=== PATIENT | male | born 1985 ===

== ENCOUNTER 2024-09-08 07:15 | Observation (INO) ==
[2024-09-08] MEDS ORDERED: ceFAZolin 2 GM PREMIX 2 GM/50 ML BAG ONE (07:58)
[2024-09-08] MEDS ORDERED: Dexamethasone IV 4 MG/ML VIAL 1 ml VIAL ONE (07:58)
[2024-09-08] MEDS ORDERED: Tranexamic Acid 1 GM/100ML BAG 2,000 MG/200 ML BAG IV ONE (07:58)
[2024-09-08] MEDS ORDERED: Famotidine IV 10 MG/ML 2 ml VIAL (20 mg) ONE (07:59)
[2024-09-08] MEDS: Famotidine IV 10 MG/ML 2 ml VIAL (20 mg) IV ONE (08:25)
[2024-09-08] MEDS: Dexamethasone IV 4 MG/ML VIAL 1 ml VIAL IV SLOW PU ONE (08:27)
[2024-09-08 08:28] LABS: Rapid COVID-19 Molecular Undetected (Undetected)
[2024-09-08 09:28] LABS: Albumin 4.4 g/dL (3.2-5.2); Albumin/Globulin Ratio 1.8 (1-3); Calcium 9.5 mg/dL (8.6-10.3); Creatinine, Serum 0.69 mg/dL (0.67-1.17); Globulin 2.4 g/dL (2-4); Potassium 3.8 mmol/L (3.5-5.0); Total Bilirubin 0.5 mg/dL (0.2-1.0); Total Protein 6.8 g/dL (6.4-8.9); eGFR CKD-EPI 121.5 (>60)
[2024-09-08] MEDS ORDERED: Midazolam 5 mg/5 ml VIAL 1 mg/ml 5 ml VIAL (5 mg) ONE (09:53)
[2024-09-08] MEDS ORDERED: fentaNYL 250 mcg/5 ml 50 MCG/ML 5 ml VIAL (250 MCG) ONE (09:53)
[2024-09-08] MEDS ORDERED: Propofol 10 MG/ML 20 ML BTL ONE (10:44)
[2024-09-08] MEDS ORDERED: Lidocaine 2% PF 5 ML VIAL ONE (10:44)
[2024-09-08] MEDS ORDERED: Rocuronium 50 mg VIAL 10 mg/ml 5 ml VIAL (50 mg) ONE ×2 (10:45→11:49)
[2024-09-08] MEDS ORDERED: KETAMINE HCL 10 MG/ML 20 ml VIAL (200 MG) ONE (11:22)
[2024-09-08] MEDS ORDERED: ROPIVACAINE 5 MG/ML 30 ML BTL (0.5%) ONE (11:35)
[2024-09-08] MEDS ORDERED: Naloxone 0.4 mg VIAL 0.4 mg/ml 1 ml VIAL IV PRN (11:38)
[2024-09-08] MEDS ORDERED: HYDROmorphone 1 MG/1 ML SYRINGE IV PRN (11:38)
[2024-09-08] MEDS ORDERED: Sevoflurane BOTTLE ONE (11:51)
[2024-09-08] MEDS ORDERED: HYDROmorphone 0.5 MG/0.5 ML SYRINGE ONE ×2 (12:16→13:11)
[2024-09-08] MEDS ORDERED: Ondansetron 4 mg VIAL 2 MG/ML 2 ml VIAL ONE (12:40)
[2024-09-08] MEDS ORDERED: fentaNYL 100 mcg/2 ml 50 MCG/ML VIAL ONE ×2 (13:23→13:53)
[2024-09-08] MEDS: fentaNYL 100 mcg/2 ml 50 MCG/ML VIAL IV PRN (13:56)
[2024-09-08] MEDS ORDERED: Ondansetron 4 mg VIAL 2 MG/ML 2 ml VIAL IV PRN (13:57)
[2024-09-08] MEDS ORDERED: Magnesium Hydroxide LIQ 30 ML UDC PO PRN (13:57)
[2024-09-08] MEDS ORDERED: Ondansetron ODT 4 mg TAB 4 MG TAB PO PRN (13:57)
[2024-09-08] MEDS: Lactated Ringers 1000 ml BAG 1,000 ML IV SCH ×2 (15:29→16:48)
[2024-09-08] MEDS: Morphine 2 MG/ML SYRINGE IV PRN (15:29)
[2024-09-08] MEDS: Morphine 2 MG/ML SYRINGE ONE (15:56)
[2024-09-08] MEDS: Buffered Lidocaine 1% SYRIN 1 ml INTRADERM ONE (16:48)
[2024-09-08] MEDS: ceFAZolin 2 GM PREMIX 2 GM/50 ML BAG IV SCH (19:59)
[2024-09-08] MEDS: Magnesium Hydroxide LIQ 30 ML UDC PO SCH (21:50)
[2024-09-09] MEDS: Calcium Carb (TUMS) 500 mg CHEW TAB PO PRN (04:21)
[2024-09-09 06:23] LABS: Hematocrit 25.1 % (38-53); Hemoglobin 8.8 g/dL (13.2-16.3); Mean Platelet Volume 7.4 fL (7.5-11.2); Platelet Count 230 10^3/uL (150-450)
[2024-09-09 06:39] LABS: Calcium 8.7 mg/dL (8.6-10.3); Creatinine, Serum 0.68 mg/dL (0.67-1.17); Potassium 3.8 mmol/L (3.5-5.0)
[2024-09-09] MEDS: Vitamin THERAPEUTIC TAB PO SCH (09:22)
[2024-09-10 06:22] LABS: Hematocrit 21.2 % (38-53); Hemoglobin 7.4 g/dL (13.2-16.3); Mean Platelet Volume 7.4 fL (7.5-11.2); Platelet Count 190 10^3/uL (150-450)
[2024-09-10 10:37] LABS: ABS Eosinophils 0.5 10^3/uL (0.0-0.5); ABS Lymphocytes 1.7 10^3/uL (1.0-4.8); ABS Monocytes 0.8 10^3/uL (0.0-1.1); ABS Neutrophils 4.5 10^3/uL (1.5-7.6); Corrected Retic Count 0.6 % (0.5-1.5); Eosinophil % 6.8 %; Hematocrit 21.9 % (38-53); Hematocrit for Retic CNT 21.9 % (38-53); Hemoglobin 7.4 g/dL (13.2-16.3); Immature Retic Fraction 0.29; Lymphocyte % 22.4 %; Mean Corpuscular Hemoglobin 30.4 pg (27-33); Mean Corpuscular Hgb Conc 33.7 g/dL (31-36); Mean Corpuscular Volume 90.1 fL (80-97); Mean Platelet Volume 6.9 fL (7.5-11.2); Nucleated Red Blood Cells % 0.1 %/100WBC (0.0-0.8); Platelet Count 205 10^3/uL (150-450); RBC Retic Count 2.43 10^6/ul (4.06-5.63); Red Blood Count 2.43 10^6/uL (4.06-5.63); Red Cell Distribution Width 12.5 % (12-17); White Blood Count 7.6 10^3/uL (3.6-10.2)
[2024-09-10 10:42] LABS: INR 1.06 (0.85-1.14)
[2024-09-10 11:13] LABS: % Iron Saturation 8 % (15-55); .Transferrin 174 mg/dL (203-362); ALT 12 U/L (7-52); AST 22 U/L (13-39); Albumin 3.5 g/dL (3.2-5.2); Albumin/Globulin Ratio 1.9 (1-3); Alkaline Phosphatase 57 U/L (35-149); Direct Bilirubin 0.1 mg/dL (0.03-0.18); Globulin 1.8 g/dL (2-4); Indirect Bilirubin 0.2 mg/dL (0.3-1.0); Iron < 20 ug/dL (50-212); LDH 131 U/L (140-271); Total Bilirubin 0.3 mg/dL (0.2-1.0); Total Iron Binding Capacity 244 mcg/dL (250-450); Total Protein 5.3 g/dL (6.4-8.9); Unsaturated Iron Binding 224 ug/dL
[2024-09-10 11:25] LABS: Ferritin 59.3 ng/mL (24-336)
[2024-09-10 11:28] LABS: Folate > 20.00 ng/mL (5.90-24.80)
[2024-09-10 11:29] LABS: Vitamin B12 161 pg/mL (180-914)
[2024-09-10] MEDS: Cyanocobalamin INJ 1,000 MCG/ML VIAL 1 ML VIAL IM ONE (15:42)
[2024-09-10 18:41] LABS: Hematocrit 25.3 % (38-53); Hemoglobin 8.7 g/dL (13.2-16.3)
[2024-09-10] MEDS: Lactulose 30 ml UDC PO PRN (21:22)
[2024-09-11 05:37] LABS: Hematocrit 25.4 % (38-53); Hemoglobin 8.9 g/dL (13.2-16.3); Mean Platelet Volume 6.9 fL (7.5-11.2); Platelet Count 211 10^3/uL (150-450)
[2024-09-12 06:06] LABS: Hematocrit 25.6 % (38-53); Mean Platelet Volume 7.3 fL (7.5-11.2); Platelet Count 258 10^3/uL (150-450)
[2024-09-12] MEDS: Enoxaparin 40 MG/0.4 ML SYR SUBCUT SCH (21:19)
[2024-09-13 05:36] LABS: Hematocrit 26.2 % (38-53); Mean Platelet Volume 6.9 fL (7.5-11.2); Platelet Count 284 10^3/uL (150-450)
[2024-09-13 23:23] LABS: Hematocrit 26.8 % (38-53); Hemoglobin 9.2 g/dL (13.2-16.3)
[2024-09-14] MEDS: Iohexol 350 (CONTRAST) 500 ML MDV IV ONE (07:30)
== END 2024-09-14 10:25 ==
LOC: SSU 07:15 → OR 07:15
PROVIDERS: ADMIT Orthopaedic Surgery Adult Reconstructive Orthopaedic Surgery; ATTEND Orthopaedic Surgery Adult Reconstructive Orthopaedic Surgery